=== PATIENT | female | born 1985 | race Caucasian/White ===

== ENCOUNTER 2016-08-12 10:08 | Emergency (ER) | payer OTHER ==
--- NOTE | 2016-08-12 10:33 | ED Physician Documentation ---
Chest Pain - HISTORIAN Historian: patient - HPI Chief Complaint: Chest Pain Onset: days ago (4 days) Timing: other (comes and goes) Duration: other (last for 5-10 minutes) Last known Well Date: 08/08/16 Last Known Well Time: 08:00 Context: activity Severity: moderate Quality: tightness, other (pressure feeling) Chest Pain Radiation: arms (left) Chest Pain Signs/Symptoms: nausea, vomiting Worsened By: deep breaths, movement Relieved By: nothing Further Comments: yes (Patient has had a 3-4 day history of some intermittent left chest pain. In the upper chest area and somethimes goes down her arm to mid upper arm. Worse with breating or movement. No history of truama. Has been having some problems with her back and neck. Does feel dizzy and light headed at times. Has had some low grade fever an chills. No one else at home sick. Having some body aches over the last two days with headaches.) - ROS CONST: denies: fever, chills MS/LYMPH: neck pain. denies: calf pain, ankle swelling, back pain GI/: nausea. denies: abdominal pain, vomiting NEURO/PSYCH: headache (mild) - PAST HX VT risk factors: no pertinent history DVT/PE Risk Factors: none GI disease: none Lung disease: none Surgeries/Procedures: none Allergies/Adverse Reactions: Allergies Allergy/AdvReac Type Severity Reaction Status Date / Time Tylenol3, Augmentin AdvReac Unknown Vomiting Uncoded 08/12/16 11:17 Home Medications: Ambulatory Orders Medication Instructions Recorded Fluoxetine HCl [Prozac] 40 mg PO D 05/03/14 Omeprazole [Prilosec] 40 mg PO D 05/03/14 clonazePAM [Klonopin] 0.5 mg PO D 05/03/14 Azithromycin [Zithromax] 250 mg PO DIRECTED #6 tablet 08/12/16 - SOCIAL HX Smoking History: non-smoker Alcohol Use: none Drug Use: none - FAMILY HX Family HX: none - VITAL SIGNS Vital Signs: Vital Signs Temp Pulse Resp BP Pulse Ox 117/78 05/03/14 17:21 - REVIEWED ASSESSMENTS Nursing Assessment Reviewed: Yes Vitals Reviewed: Yes ED Results Lab/Radiology - Radiology Radiology Impressions: chest x-ray normal Chest Pain Physical Exam - EXAM General Appearance: alert, mild distress EENT: eye inspection normal, ENT inspection normal, pharynx normal, no signs of dehydration Neck: nml inspection, no carotid bruit. No: lymphadenopathy Respiratory: no resp. distress, nml breath sounds, manifests distinct pain on movement, left, arm, other (tender over the left upper chest area to palpation) . No: resp.distress, decreased air movement, wheezes, rales, rhonchi CVS: reg. rate & rhythm, no murmur, no gallop, no friction rub, pulses full, pulses equal Abdomen: soft, no organomegaly, normal bowel sounds, no abdominal bruit, tenderness (epigastric area) Skin: warm/dry, normal color Extremities: non-tender, no edema Neuro: mood/affect nml, cognition normal Discharge Clincal Impression: Chest pain at rest, Bronchitis Prescriptions: Azithromycin [Zithromax] 250 mg PO DIRECTED #6 tablet Referrals: Pierre Foster MD [Primary Care Provider] - 2 Days Additional Instructions: Drink a lot of fluids. Use a warm compress to the area of pain. Take some Aleve 220mg two tablets twice a day with food. If symptoms get worse or do not improve to return to the ED or see your primary care provider. Take the Azithromycin as directed. Home Medications: Ambulatory Orders Fluoxetine HCl [Prozac] 40 mg PO D 05/03/14 Omeprazole [Prilosec] 40 mg PO D 05/03/14 clonazePAM [Klonopin] 0.5 mg PO D 05/03/14 Azithromycin [Zithromax] 250 mg PO DIRECTED #6 tablet 08/12/16 Condition: Stable Disposition: HOME, SELF-CARE Decision to Admit: NO Date of Decison to Admit: 08/12/16 Decision Time: 12:33
[2016-08-12 10:59] LABS: BASOPHILS % 0.4 (0.0-1.5); EOSINOPHILS % 1.8 % (0.0-6.8); LYMPHOCYTES # 2.3 # k/uL (0.6-4.0); MEAN CORPUSCULAR HEMOGLOBIN 29.8 pg (28.0-34.0); MONOCYTES # 0.4 # k/uL (0.0-0.9); MONOCYTES % 5.2 % (0.0-11.0)
[2016-08-12 11:09] LABS: eGFR (African) > 60; eGFR (Non-African) > 60
[2016-08-12 12:51] VITALS: BP 127/78
--- NOTE | 2016-08-12 14:59 | Diagnostic Imaging Report ---
[facility] [address] [facility] [address] [place], [place]. [address] Report Submission Date: Aug 12, 2016 11:19:45 AM BOBBIN MARKER Patient Study Name: MONTEZ PETERS Date: Aug 12, 2016 10:54:02 AM [employer]OBBIN MARKER Modality Type: CR Gender: F Description: CHEST : 87 Institution: [facility] Physician: CINDY SHEPHERD MD 2 views of the chest History: LEFT SIDED CHEST PAIN, LEFT ARM PAIN, BACK PAIN. SMOKER FOR 18 YEARS Findings: No comparison studies Heart is normal in size There is no focal consolidation, pleural effusion or pneumothorax Right basilar atelectasis is seen Mild degenerative changes thoracic spine Impression: 1. R of the top of the ight basal atelectasis. No pleural effusion Electronically signed on Aug 12, 2016 11:19:45 AM BOBBIN MARKER by: Lalita SALCEDO
== END 2016-08-12 12:45 | disposition home or self-care (01) ==
LOC: ED 10:08
DX: R07.9 Chest pain, unspecified (principal); J20.9 Acute bronchitis, unspecified
CPT/HCPCS: 71020; 80053; 84484; 85025; 85379; 87400; 99283; S1016

== ENCOUNTER 2016-08-24 07:34 | Emergency (ER) | payer OTHER ==
[2016-08-24] MEDS ORDERED: methylPREDNISolone ACETATE 80 MG/ML VIAL IM ONE (07:49)
--- NOTE | 2016-08-24 07:58 | ED Physician Documentation ---
Allergy Symptoms - HISTORIAN Historian: patient, friend - [facility] Stated Complaint: Tongue swelling Chief Complaint: Allergic Reaction Additional Information: udrticaria swollen tongue n/e/d onset w/skin rash 4-5 days agko now worse. std new med amitryptline few days ago but has very freq all rxns Duration: worse (n/e/d onset last pm) Associated Symptoms: skin rash, facial, itching, trunk, extremities Swelling: tongue Shortness of Breath: moderate Trouble Swallowing/ Speaking: mild Identified Cause: possibly Where: work - ROS EYES/ENT: none CVS/RESP: none GI/: none CONST: none MS/SKIN/LYMPH: none NEURO/PSYCH: none - PAST HX Prior Allergic Reaction: hives, nausea, rash Medical History: other (depression anxiety asthma gerd) Allergies/Adverse Reactions: Allergies Allergy/AdvReac Type Severity Reaction Status Date / Time Tylenol3, Augmentin AdvReac Unknown Vomiting Uncoded 08/12/16 11:17 Home Medications: Ambulatory Orders Medication Instructions Recorded Fluoxetine HCl [Prozac] 40 mg PO D 05/03/14 Omeprazole [Prilosec] 40 mg PO D 05/03/14 clonazePAM [Klonopin] 0.5 mg PO D 05/03/14 Amitriptyline HCl [Elavil] 25 mg PO HS 08/24/16 Bupropion HCl [Wellbutrin] 75 mg PO DAILY 08/24/16 Promethazine HCl [Phenergan] 12.5 mg PO Q4H PRN #20 tablet 08/24/16 - SOCIAL HX Smoking History: greater than 1 pack/day Alcohol Use: none Drug Use: none - FAMILY HX Family History: No - VITAL SIGNS Vital Signs: Vital Signs Temp Pulse Resp BP Pulse Ox 98.2 F 103 H 26 H 142/81 100 08/24/16 07:46 08/24/16 07:46 08/24/16 07:46 08/24/16 07:46 08/24/16 07:46 - REVIEWED ASSESSMENTS Nursing Assessment Reviewed: Yes Vitals Reviewed: Yes ED Results Lab/Radiology - Orders Orders: ED Orders Category Date Time Status Place Saline Lock/IV Now Care 08/24/16 07:48 Ordered methylPREDNISolone ACETATE [Depo-Medrol] Med 08/24/16 07:49 Once 80 mg IM NOW ONE Allergy Symptons Exam - EXAM General Appearance: mild distress HEENT: pharynx nml Skin: skin rash, urticaria Extremities: non-tender, nml ROM, no edema Neck: nml inspection Respiratory: no resp. distress, breath sounds nml CVS: reg rate & rhythm, heart sounds normal Abdomen: non-tender Neuro: oriented X3, motor nml, sensation nml Discharge Clincal Impression: Urticaria, Dehydration Prescriptions: Promethazine HCl [Phenergan] 12.5 mg PO Q4H PRN #20 tablet PRN Reason: Nausea / Vomiting Referrals: Pierre Foster MD [Primary Care Provider] - 2 Days Home Medications: Ambulatory Orders Fluoxetine HCl [Prozac] 40 mg PO D 05/03/14 Omeprazole [Prilosec] 40 mg PO D 05/03/14 clonazePAM [Klonopin] 0.5 mg PO D 05/03/14 Amitriptyline HCl [Elavil] 25 mg PO HS 08/24/16 Bupropion HCl [Wellbutrin] 75 mg PO DAILY 08/24/16 Promethazine HCl [Phenergan] 12.5 mg PO Q4H PRN #20 tablet 08/24/16 Condition: Good Disposition: 01 HOME, SELF-CARE Decision to Admit: NO Decision Time: 09:55
[2016-08-24] MEDS ORDERED: 0.9 % SODIUM CHLORIDE 1,000 ML IV ONE (08:52)
[2016-08-24] MEDS ORDERED: ONDANSETRON HCL/PF 4 MG/ 2ML VIAL IVP ONE (08:53)
[2016-08-24 11:08] VITALS: BP 132/78
[2016-08-24 22:49] LABS: OCCULT BLOOD,URINE NEGATIVE (NEGATIVE); UROBILINOGEN URINE 0.2 Eu (0.2-1.0)
== END 2016-08-24 11:07 | disposition home or self-care (01) ==
LOC: ED 07:34
DX: L50.9 Urticaria, unspecified (principal); E86.0 Dehydration
CPT/HCPCS: 81002; J1040; J2405; J7030; 96361; 96372; 96374; 99283; S1016